=== PATIENT | female | born 1935 | race Caucasian/White ===

== ENCOUNTER → 2016-11-02 | Outpatient (CLI) | payer MEDICARE ==
[~2016-11-02] MED LIST: ALPR0.5T3 PO; AMLO5TAB22 PO; B COTAB3 PO; CALC500T42 OR; CLOP75 PO; ESTR1.25 PO; FISH1000 PO; FURO1TAB93 PO; K-TA10TA5 PO; LEVO100T60 PO; OCUV PO; RED600TA PO; REST30CA PO; TELM1TAB56 PO; TOPR50TA PO; TYLE650T9 PO
[2016-11-02 10:42] LABS: BLOOD GAS BASE EXCESS -2.9 mmol/L (-2-2); BLOOD GAS CARBOXYHEMOGLOBIN 1.3 % (0-4); BLOOD GAS HCO3 21 mmol/L (22-26); BLOOD GAS METHEMOGLOBIN 0.9 % (0-2); BLOOD GAS O2 HGB SATURATION 95 % (90-100); BLOOD GAS PCO2 34 mmHg (38-42); BLOOD GAS PO2 90 mmHg (61-120); BLOOD GAS TOTAL HGB 11.2 G/DL (12.0-16.0); TEMP CORR TO 98.6
[2016-11-02 10:43] LABS: CRITICAL VALUE NO; DRAW SITE RT RADIAL; FIO2 21 %; NUMBER OF ARTERIAL PUNCTURES 1; STAT NO; ULNAR PULSE PRESENT
--- NOTE | 2016-11-06 09:27 | RSPPFT ---
DATE OF PROCEDURE: 11/02/16 COMMENTS: Spirometry with FVC of 2.8 predicted 2.5, FEV1 of 2.1 predicted 1.6, FEV1/FVC ratio at 76% predicted 66%. Lung volumes are basically within the predicted range as well as the DLCO. IMPRESSION: On the basis of the above, patient has flow values, lung volumes and DLCO are within the predicted range.
== END ==
LOC: HRSP 09:26
PROVIDERS: ATTEND Internal Medicine Pulmonary Disease
DX: I27.2 Other secondary pulmonary hypertension (principal)
CPT/HCPCS: 36600; 82805; 94060; 94620; 94726; 94729